=== PATIENT | female | born 1960 | race Caucasian/White ===

== ENCOUNTER 2016-04-18 08:26 | Observation (INO) | payer SELFPAY ==
[2016-04-18] VITALS (8 sets, daily range): BP systolic 114–146; BP diastolic 57–84; PULSE 45–82; RESP 15–20; TEMP 97.2–98; O2SAT 92–100
[~2016-04-18] VITALS: Ht 165.1 cm; Wt 61.3 kg
[~2016-04-18 08:26] MED LIST: ESTR.3 PO; FLUO40CA PO; MIRTA15 PO; PREG100 PO; PROZ20CA11 PO; ROPI4TAB PO
[2016-04-18 10:18] LABS: AUTOMATED NEUTROPHIL # 2.9 TH/MM3 (1.8-7.7); BASOPHIL % 0.1 % (0.0-2.0); EOSINOPHIL % 0.2 % (0.0-4.0); HEMATOCRIT 43.9 % (35.0-46.0); HEMO FLAGS DIFF FINAL; LYMPHOCYTE # 2.8 TH/MM3 (1.0-4.8); MEAN CELL VOLUME 91.6 FL (80.0-100.0); MEAN CORPUSCULAR HEMOGLOBIN 31.2 PG (27.0-34.0); MEAN CORPUSCULAR HGB CONC 34.1 % (32.0-36.0); MONO % 10.1 % (0.0-8.0); NEUT % 45.6 % (16.0-70.0); PLATELET COUNT 294 TH/MM3 (150-450); RED BLOOD COUNT 4.79 MIL/MM3 (4.00-5.30); RED CELL DISTRIBUTION WIDTH 13.4 % (11.6-17.2); WHITE BLOOD COUNT 6.3 TH/MM3 (4.0-11.0)
[2016-04-18 10:36] LABS: ALT (GPT) 21 U/L (10-53); ANION GAP 6 MEQ/L (5-15); AST (GOT) 17 U/L (15-37); BLOOD UREA NITROGEN 7 MG/DL (7-18); CHLORIDE 106 MEQ/L (98-107); GLOMERULAR FILTRATION RATE 60 ML/MIN (>89); POTASSIUM 3.6 MEQ/L (3.5-5.1); SODIUM (NA) 142 MEQ/L (136-145)
[2016-04-18 10:38] LABS: ALKALINE PHOSPHATASE 75 U/L (45-117); TOTAL BILIRUBIN ADULT 0.5 MG/DL (0.2-1.0)
[2016-04-18 10:43] LABS: BACTERIA, URINE MOD /hpf; BLOOD, URINE NEG (NEG); COMMENT (UR) CULTURE INDICATED; CULTURE IF INDICATED CULTURE INDICATED; GLUCOSE,URINE NEG (NEG); HYALINE CAST, URINE 2 /lpf (RARE); KETONE, URINE NEG (NEG); MUCUS URINE MOD /lpf (OCC); NITRITE,URINE NEG (NEG); PH, URINE 5.5 (5.0-8.5); SQUAMOUS EPITHELIAL CELL URINE 21 /hpf (0-5); URINE COLOR YELLOW (YELLW/STRAW)
--- NOTE | 2016-04-18 11:55 | PD ---
HPI Chief Complaint: Neuro Symptoms/ Deficits Time Seen by Provider: 11:43 Travel History International Travel<30 days: No Contact w/Intl Traveler<30days: No Traveled to known affect area: No History of Present Illness HPI 56-year-old female complaining of possible seizure. Patient states that she has recurrent symptoms of whole-body trembling and passing out and woke up on the floor for the past 6 months. Patient states that she probably had seizures. Patient denies any injury from these episodes. Patient states that she has recurrent headache. Patient denies any visual change. Patient denies any neck pain. Patient denies any chest pain or shortness of breath. Patient denies abdominal pain. Patient denies any focal weakness or numbness of extremity. Patient denies any illicit drug or alcohol abuse. Patient has history anxiety depression and chronic pain. Patient was on Lyrica, Effexor and Seroquel. Patient states that she ran out of the medications recently. Patient denies any medical problem. PFSH Past Medical History Bipolar Disorder: Yes Anxiety: Yes Depression: Yes Cancer: No Cardiovascular Problems: No High Cholesterol: Yes Diabetes: No Diminished Hearing: No Headaches: No Psychiatric: Yes (Pt states she was treated for depression beginning at age 14) Immunizations Current: Yes Seizures: No Tubal Ligation: Yes Past Surgical History Abdominal Surgery: Yes Appendectomy: Yes Tonsillectomy: Yes Social History Alcohol Use: Yes (vodka) Tobacco Use: Yes (2 PPD) Substance Use: Yes (MARIJUANA (ANXIETY), COCAINE (USES TO DECREASE DERESSION SX )) Allergies-Medications (Allergen,Severity, Reaction): Coded Allergies: No Known Allergies (Unverified , 11/21/14) Reported Meds & Prescriptions Reported Meds & Active Scripts Active Lyrica (Pregabalin) 100 Mg Cap 100 Mg PO Q12HR Mirtazapine 15 Mg Tab 15 Mg PO HS Prozac (Fluoxetine HCl) 20 Mg Cap 60 Mg PO DAILY Ropinirole HCl (Ropinirole Hydrochloride) 4 Mg Tab 1 Tab PO HS Fluoxetine (Fluoxetine HCl) 40 Mg Cap 40 Mg PO DAILY Reported Premarin (Estrogens Conjugated) 0.3 Mg Tab 0.3 Mg PO DAILY Review of Systems General / Constitutional: No: Fever Eyes: No: Visual changes HENT: Positive: Headaches Cardiovascular: No: Chest Pain or Discomfort Respiratory: No: Shortness of Breath Gastrointestinal: No: Abdominal Pain Genitourinary: No: Dysuria Musculoskeletal: No: Pain Skin: No Rash Neurologic: Positive: Seizures, No: Weakness Psychiatric: No: Depression Endocrine: No: Polydipsia Hematologic/Lymphatic: No: Easy Bruising Physical Exam Narrative GENERAL: Well-nourished, well-developed patient. SKIN: Warm and dry. HEAD: Normocephalic. EYES: No scleral icterus. No injection or drainage. NECK: Supple, trachea midline. No JVD or lymphadenopathy. CARDIOVASCULAR: Regular rate and rhythm without murmurs, gallops, or rubs. RESPIRATORY: Breath sounds equal bilaterally. No accessory muscle use. GASTROINTESTINAL: Abdomen soft, non-tender, nondistended. MUSCULOSKELETAL: No cyanosis, or edema. BACK: Nontender without obvious deformity. No CVA tenderness. Neurologic exam: Patient is awake and alert oriented 3. No obvious focal neurological deficit. Data Data Last Documented VS Vital Signs Date Time Temp Pulse Resp B/P Pulse Ox O2 Delivery O2 Flow Rate FiO2 04/18/16 11:50 52 16 146/75 97 Room Air 04/18/16 08:28 98.0 Orders Complete Blood Count With Diff (04/18/16 09:37) Comprehensive Metabolic Panel (04/18/16 09:37) Urinalysis - C+S If Indicated (04/18/16 09:37) Urine Culture (04/18/16 09:46) Ct Brain W/O Iv Contrast(Rout) (04/18/16 11:50) Drug Screen, Random Urine (04/18/16 11:50) Alcohol (Ethanol) (04/18/16 11:50) Labs Laboratory Tests Test 04/18/16 09:46 White Blood Count 6.3 TH/MM3 Red Blood Count 4.79 MIL/MM3 Hemoglobin 14.9 GM/DL Hematocrit 43.9 % Mean Corpuscular Volume 91.6 FL Mean Corpuscular Hemoglobin 31.2 PG Mean Corpuscular Hemoglobin 34.1 % Concent Red Cell Distribution Width 13.4 % Platelet Count 294 TH/MM3 Mean Platelet Volume 7.2 FL Neutrophils (%) (Auto) 45.6 % Lymphocytes (%) (Auto) 44.0 % Monocytes (%) (Auto) 10.1 % Eosinophils (%) (Auto) 0.2 % Basophils (%) (Auto) 0.1 % Neutrophils # (Auto) 2.9 TH/MM3 Lymphocytes # (Auto) 2.8 TH/MM3 Monocytes # (Auto) 0.6 TH/MM3 Eosinophils # (Auto) 0.0 TH/MM3 Basophils # (Auto) 0.0 TH/MM3 CBC Comment DIFF FINAL Differential Comment Urine Color YELLOW Urine Turbidity HAZY Urine pH 5.5 Urine Specific [place] 1.018 Urine Protein TRACE mg/dL Urine Glucose (UA) NEG mg/dL Urine Ketones NEG mg/dL Urine Occult Blood NEG Urine Nitrite NEG Urine Bilirubin NEG Urine Urobilinogen 2.0 MG/DL Urine Leukocyte Esterase MOD Urine RBC 1 /hpf Urine WBC 13 /hpf Urine Squamous Epithelial 21 /hpf Cells Urine Bacteria MOD /hpf Urine Hyaline Casts 2 /lpf Urine Mucus MOD /lpf Microscopic Urinalysis Comment CULTURE INDICATED Sodium Level 142 MEQ/L Potassium Level 3.6 MEQ/L Chloride Level 106 MEQ/L Carbon Dioxide Level 30.0 MEQ/L Anion Gap 6 MEQ/L Blood Urea Nitrogen 7 MG/DL Creatinine 0.97 MG/DL Estimat Glomerular Filtration 60 ML/MIN Rate Random Glucose 99 MG/DL Calcium Level 9.3 MG/DL Total Bilirubin 0.5 MG/DL Aspartate Amino Transf 17 U/L (AST/SGOT) Alanine Aminotransferase 21 U/L (ALT/SGPT) Alkaline Phosphatase 75 U/L Total Protein 7.3 GM/DL Albumin 4.2 GM/DL [facility] Medical Decision Making Medical Screen Exam Complete: Yes Emergency Medical Condition: Yes Interpretation(s) 12:35 PM. CBC within normal limit. CMP within normal limit. UA is positive with WBC and bacteria. 12:[address] scan of the brain negative acute pathology. Differential Diagnosis Differential diagnosis including seizures, electrolyte imbalance, psychiatric issues. Narrative Course 56-year-old female with possible recurrent seizures. Diagnosis Primary Impression: Seizure Additional Impression: UTI (urinary tract infection) Qualified Code: N30.00 - Acute cystitis without hematuria Leonel Stokes MD Apr 18, 2016 11:55
--- NOTE | 2016-04-18 12:52 | RADRPT ---
EXAM DATE/TIME: 04/18/2016 12:03 [facility] COMPARISON: No previous studies available for comparison. INDICATIONS : Possible seizures. RADIATION DOSE: 56.77 CTDIvol (mGy) MEDICAL HISTORY : None SURGICAL HISTORY : Tonsillectomy. Tubal ligation. ENCOUNTER: Initial ACUITY: 4 - 6 months PAIN SCALE: 0/10 LOCATION: cranial TECHNIQUE: Multiple contiguous axial images were obtained of the head. Using automated exposure control and adj ustment of the mA and/or kV according to patient size, radiation dose was kept as low as reasonably a chievable to obtain optimal diagnostic quality images. FINDINGS: CEREBRUM: The ventricles are normal for age. No evidence of midline shift, mass lesion, hemorrhage or acute in farction. No extra-axial fluid collections are seen. POSTERIOR FOSSA: The cerebellum and brainstem are intact. The 4th ventricle is midline. The cerebellopontine angle i s unremarkable. EXTRACRANIAL: The visualized portion of the orbits is intact. SKULL: The calvaria is intact. No evidence of skull fracture. CONCLUSION: No acute disease. Jose Carrasco Jr., MD on April 18, 2016 at 12:50 Board Certified Radiologist. This report was verified electronically.
[2016-04-18] MEDS ORDERED: SODIUM CHLORIDE 0.9% FLUSH 5 ML FLUSH IVF PRN (13:45)
[2016-04-18] MEDS ORDERED: LORazepam 2 MG/ML VIAL IV PRN (13:45)
[2016-04-18] MEDS ORDERED: EFFE150C PO ×2 (13:48→23:13)
[2016-04-18] MEDS ORDERED: ONDANSETRON HCL 4 MG/2 ML VIAL IV PRN (14:00)
[2016-04-18 14:15] LABS: AMPHETAMINE, URINE NEG (NEG); BARBITURATES, URINE NEG (NEG); COCAINE, URINE POS (NEG)
[2016-04-18] MEDS: SODIUM CHLOR 0.9% 1000 ML INJ 1,000 ML IV SCH (14:42)
--- NOTE | 2016-04-18 15:52 | MB ---
cc: ANDREW NAGY M.D. DATE OF CONSULTATION: 04/18/2016. REASON FOR CONSULTATION: Seizure versus syncope. HISTORY OF PRESENT ILLNESS: This is a 56-year-old woman who comes in with what she describes as hold body shaking, passing out and waking up on the floor. This has happened about a half a dozen times in the last six months. She feels dizzy before it happens. No one is ever there to see what actually occurs. She feels a little confused when she wakes up. At times, she is incontinent but does not bite her tongue because she does not have teeth, she states. She states she has had vertigo for about ten years off and on with positional changes. She denies any headache, chest pain, shortness of breath, numbness, weakness, or tingling. Interestingly enough, she denied any drug use or alcohol use to the emergency room physician. I asked her about smoking and she states she smokes but she denied alcohol. She has a history of anxiety, depression on Effexor. She states she takes Effexor. Apparently she told the ER doctor she is on Lyrica, Effexor and Seroquel and ran out recently so I am not sure really what the truth is in this situation. She has a history of bipolar disorder, anxiety, depression, hyperlipidemia, possibly. SOCIAL HISTORY: She states she drinks socially. She states she smokes. Denies drugs. ALLERGIES: None reported. HOME MEDICATIONS: Home medicines per chart. 1. Lyrica. 2. Mirtazapine. 3. Prozac. 4. Ropinirole. 5. Fluoxetine. 6. Premarin. EXAMINATION: VITAL SIGNS: Temperature is 98, heart rate 82, respiratory rate 16, blood pressure 131/63. NECK: The neck is supple. No bruits. HEART: Regular. NEUROLOGIC: She is awake, alert, oriented, fluent. Pupils reactive. Visual eid full. Face symmetric. Tongue midline. Motor - no drift. No leg lag. Cerebellar testing is normal. Toes are downgoing. Gait is withheld. LABS: Labs are reviewed. GFR is 60. CBC unremarkable. Urine culture is pending for 13 white cells and some bacteria and leukocyte esterase. Toxicology positive for cocaine and cannabinoids. IMPRESSION: 1. Syncope versus seizure. 2. Polysubstance abuse. 3. Smoker. RECOMMENDATIONS: 1. Recommend getting an EEG. 2. Get a carotid ultrasound. 3. Check orthostatics. 4. Put her back on her psychiatric medications. 5. Maintain telemetry. 6. If workup is negative, recommend discharge. 7. She needs to stop smoking and using drugs. 8. Antibiotics if indicated for a urinary tract infection. MD LIVAN Azul/ALY /3:06 PM /3:44 PM
--- NOTE | 2016-04-18 16:30 | MG ---
cc: FAVIOLA CLARK Lab No: [id number] Date: 04/18/16 Age: Sex: F Race: TECHNIQUE 17 channel EEG. DESCRIPTION Background rhythm is a symmetrical alpha rhythm, frequency is 8 Hz, amplitude 20-30 microvolts. There is some muscle artifact present. There is some eye movement artifact present as well. No lateralizing features are seen and no epileptiform discharges are present. Photic results in a normal driving response. Hyperventilation was done with a good effort with no change in the background rhythm. INTERPRETATION This is a normal EEG. MD CELSA Vasquez/AILYN /4:18 PM /4:28 PM
--- NOTE | 2016-04-18 16:42 | HHI.HP ---
[facility] No Primary Care Physician Admission Diagnosis seizure Diagnoses: Chief Complaint: Possible seizure Travel History International Travel<30 Days: No Contact w/Intl Traveler <30 Da: No Traveled to Known Affected Are: No History of Present Illness 56-year-old female with past medical history mood disorder who presented with possible seizure. The patient states that for the past 6 months she's been having episodes where she's having shaking and waking up on the floor. She feels like she's been having seizures. She recently moved back to the area from [place], and lost her insurance and does not have a PCP. She had previously been on Lyrica, Effexor, Seroquel, but now is currently only on Effexor. She states that recently she has been very anxious from her move back down here and living on her own. She states that she has not been eating or sleeping well. She states that she has a history of UTIs, denies any symptoms of dysuria like previous UTIs. She denies any fevers, chills, cough, recent illness. She does occasionally use cocaine, she states she is aware of the risks, no interest in quitting at this time. Review of Systems Except as stated in HPI: all other systems reviewed are Neg Past Family Social History Past Medical History Mood disorder including anxiety, depression, restless leg syndrome, insomnia Past Surgical History Appendectomy Reported Medications Effexor XR 24 HR (Venlafaxine HCl) 150 Mg Cap 300 Mg PO DAILY Allergies: Coded Allergies: No Known Allergies (Unverified , 11/21/14) Active Ordered Medications Current Medications Medications (Trade) Dose Ordered Sig/Lesli Route Start Time Stop Time Status Last Admin (NS 1000 ml Inj) 1,000 ml @ 75 mls/hr [id number] IV 04/18/16 14:00 04/18/16 14:42 (NS Flush) 2 ml UNSCH PRN IVF 04/18/16 13:45 (NS Flush) 2 ml BID IVF 04/18/16 21:00 (Ativan Inj) 2 mg UNSCH PRN IV 04/18/16 13:45 (Zofran Inj) 4 mg Q6H PRN IV 04/18/16 14:00 Family History Adopted, unknown family history Social History Smokes one pack per day Denies any alcohol use Does admit to cocaine use, last use yesterday Physical Exam Vital Signs Vital Signs Date Time Temp Pulse Resp B/P Pulse Ox O2 Delivery O2 Flow Rate FiO2 04/18/16 14:52 82 16 131/63 97 Room Air 04/18/16 11:50 52 16 146/75 97 Room Air 04/18/16 08:28 98.0 64 20 138/84 92 Room Air Physical Exam GENERAL: Well-developed well-nourished. In no acute distress. SKIN: Warm and dry. No lesions noted. HEENT: Normocephalic. Pupils equal and round. Mucous membranes pink and moist. CARDIOVASCULAR: Regular rate and rhythm. No murmur appreciated. RESPIRATORY: No accessory muscle use. Clear to auscultation. Breath sounds equal bilaterally. GASTROINTESTINAL: Abdomen soft, non-tender, nondistended. Bowel sounds x4. MUSCULOSKELETAL: No obvious deformities. No clubbing or cyanosis. No edema. NEUROLOGICAL: Awake and alert. No focal neurological deficits. Moves upper and lower extremities spontaneously. Normal speech. PSYCHIATRIC: Appropriate mood and affect; insight and judgment normal. Laboratory Laboratory Tests Test 04/18/16 09:46 White Blood Count 6.3 Red Blood Count 4.79 Hemoglobin 14.9 Hematocrit 43.9 Mean Corpuscular Volume 91.6 Mean Corpuscular Hemoglobin 31.2 Mean Corpuscular Hemoglobin 34.1 Concent Red Cell Distribution Width 13.4 Platelet Count 294 Mean Platelet Volume 7.2 Neutrophils (%) (Auto) 45.6 Lymphocytes (%) (Auto) 44.0 Monocytes (%) (Auto) 10.1 Eosinophils (%) (Auto) 0.2 Basophils (%) (Auto) 0.1 Neutrophils # (Auto) 2.9 Lymphocytes # (Auto) 2.8 Monocytes # (Auto) 0.6 Eosinophils # (Auto) 0.0 Basophils # (Auto) 0.0 CBC Comment DIFF FINAL Differential Comment Urine Color YELLOW Urine Turbidity HAZY Urine pH 5.5 Urine Specific [place] 1.018 Urine Protein TRACE Urine Glucose (UA) NEG Urine Ketones NEG Urine Occult Blood NEG Urine Nitrite NEG Urine Bilirubin NEG Urine Urobilinogen 2.0 Urine Leukocyte Esterase MOD Urine RBC 1 Urine WBC 13 Urine Squamous Epithelial 21 Cells Urine Bacteria MOD Urine Hyaline Casts 2 Urine Mucus MOD Microscopic Urinalysis Comment CULTURE INDICATED Sodium Level 142 Potassium Level 3.6 Chloride Level 106 Carbon Dioxide Level 30.0 Anion Gap 6 Blood Urea Nitrogen 7 Creatinine 0.97 Estimat Glomerular Filtration 60 Rate Random Glucose 99 Calcium Level 9.3 Total Bilirubin 0.5 Aspartate Amino Transf 17 (AST/SGOT) Alanine Aminotransferase 21 (ALT/SGPT) Alkaline Phosphatase 75 Total Protein 7.3 Albumin 4.2 Urine Opiates Screen NEG Urine Barbiturates Screen NEG Urine Amphetamines Screen NEG Urine Benzodiazepines Screen NEG Urine Cocaine Screen POS Urine Cannabinoids Screen POS Ethyl Alcohol Level LESS THAN 3 Date/Time Procedure Status Source Growth 04/18/16 09:46 Urine Culture Received Urine Clean Catch Pending Result Diagram: 04/18/16 0946 04/18/16 0946 Imaging Last Impressions Head CT 04/18/16 1150 Signed Impressions: Service Date/Time: April 12:03 - CONCLUSION: No acute disease. Jose Carrasco Jr., MD Assessment and Plan Assessment and Plan 56-year-old female with past medical history mood disorder who presented with possible seizure Possible syncope versus seizure: Symptoms possibly secondary to anxiety, cocaine use, decreased oral intake, being out of psychiatric medications. Head CT with no acute process. UDS positive for cocaine and cannabis. Checked EEG, normal. Neurology consulted, recommended carotid ultrasound, telemetry, orthostatics, and restarting psychiatric medications. Ativan as needed. Neuro checks and seizure precautions. Mood disorder: Continue home Effexor, will write prescription at discharge. Start low-dose Seroquel at night for sleep. Abnormal UA: Denies any urinary symptoms. Appears contaminated with multiple squamous epithelial cells. No antibiotics indicated at this time. Polysubstance abuse, cocaine, marijuana, and tobacco. Patient counseled. DVT prophylaxis: SCDs Disposition: Likely discharge tomorrow a.m. if patient remained stable overnight. Follow-up carotid ultrasound. We will have case management see the patient and try to provide outpatient resources for follow-up. Written by Aric Braswell, acting as scribe for Dr. Harding on 04/18/16 at 16:42. The documentation accurately reflects the work performed [id number] by me on at 16:42. Discussed Condition With Patient Dr. Harding spoke to Aric Batista Apr 18, 2016 4:42 pm Pelon Harding DO Apr 18, 2016 5:56 pm
--- NOTE | 2016-04-18 18:08 | RADRPT ---
EXAM DATE/TIME: 04/18/2016 17:01 [facility] COMPARISON: No previous studies available for comparison. INDICATIONS : Cerebrovascular accident. MEDICAL HISTORY : Hypercholesterolemia. Hearing loss. Anticoagulant therapy, Aspirin. Herniated disc. SURGICAL HISTORY : None. ENCOUNTER: Initial ACUITY: 1 day PAIN SCORE: 0/10 LOCATION: Bilateral neck PEAK SYSTOLIC VELOCITIES (cm/sec): ICA/CCA RATIO: Right: 1.1 Left: 0.7 ICA: Right: 92 Left: 88 CCA: Right: 86 Left: 125 ECA: Right: 67 Left: 107 VERTEBRAL: Right: 45 antegrade Left: 57 antegrade Elevated flow velocities and ICA/CCA ratios have been found to correlate with increased degrees of vessel stenosis, calculated as percentage of diameter relative to a normal segment of distal ICA/CCA FINDINGS: RIGHT CAROTID: Minimal plaque is seen at the carotid bulb region. No significant stenosis is visualized. The wavefo nicholas are within normal limits. LEFT CAROTID: No significant stenosis is visualized. The waveforms are within normal limits. VERTEBRAL ARTERIES: Antegrade flow is seen in both vertebral arteries. MISCELLANEOUS: None. CONCLUSION: Minimal plaque at the right carotid bulb region. A significant stenosis is not seen. Miguel A Jolly MD on April 18, 2016 at 18:05 Board Certified Radiologist. This report was verified electronically.
[2016-04-18] MEDS: SODIUM CHLORIDE 0.9% FLUSH 5 ML FLUSH IVF SCH (20:51)
[2016-04-18] MEDS ORDERED: QUEtiapine FUMARATE 25 MG TAB PO SCH (21:00)
[2016-04-18] MEDS ORDERED: QUET1TAB7 PO (23:13)
[2016-04-19] VITALS: BP 113/56; PULSE 53; PULSE 54; RESP 18; TEMP 96.3; O2SAT 95
[2016-04-19 03:17] VITALS: PULSE 38
[2016-04-19] MEDS: SODIUM CHLOR 0.9% 1000 ML INJ 1,000 ML IV SCH (03:20)
[2016-04-19 04:00] VITALS: BP 132/70; PULSE 43; RESP 18; TEMP 97.4; O2SAT 98
[2016-04-19 08:00] VITALS: BP 109/70; PULSE 51; RESP 20; TEMP 97.7; O2SAT 97
--- NOTE | 2016-04-19 08:03 | HHI.PR ---
Subjective Remarks Ms. Shields is doing well. No seizure activity. EEG and Carotid US were unremarkable. Objective Vitals Vital Signs Date Time Temp Pulse Resp B/P Pulse Ox O2 Delivery O2 Flow Rate FiO2 04/19/16 04:00 97.4 43 18 132/70 98 04/19/16 03:17 38 04/19/16 00:00 96.3 53 18 113/56 95 04/19/16 00:00 54 04/18/16 21:30 97.2 45 18 115/58 95 04/18/16 20:28 50 18 114/57 100 04/18/16 19:30 98 Room Air 04/18/16 19:30 53 18 119/66 98 04/18/16 19:06 52 16 119/66 97 Room Air 04/18/16 17:33 58 15 136/68 51 16 129/62 70 16 128/80 04/18/16 14:52 82 16 131/63 97 Room Air 04/18/16 11:50 52 16 146/75 97 Room Air 04/18/16 08:28 98.0 64 20 138/84 92 Room Air I/O 04/18/16 04/18/16 04/18/16 04/19/16 04/19/16 04/19/16 07:00 15:00 23:00 07:00 15:00 23:00 Intake Total 240 ml 360 ml Balance 240 ml 360 ml Intake Oral 240 ml 360 ml # Voids 5 Result Diagram: 04/18/16 0946 04/18/16 0946 Imaging Last Impressions Carotid Artery Ultrasound 04/18/16 1615 Signed Impressions: Service Date/Time: April 17:01 - CONCLUSION: Minimal plaque at the right carotid bulb region. A significant stenosis is not seen. Miguel A Jolly MD Head CT 04/18/16 1150 Signed Impressions: Service Date/Time: April 12:03 - CONCLUSION: No acute disease. Jose Carrasco Jr., MD Objective Remarks GENERAL: Alert, Oriented x 3, NAD. SKIN: Warm and dry. HEAD: Normocephalic. EYES: No scleral icterus. No injection or drainage. NECK: Supple, trachea midline. No JVD or lymphadenopathy. CARDIOVASCULAR: Regular rate and rhythm without murmurs, gallops, or rubs. RESPIRATORY: Breath sounds equal bilaterally. No accessory muscle use. GASTROINTESTINAL: Abdomen soft, non-tender, nondistended. MUSCULOSKELETAL: No cyanosis, or edema. BACK: Nontender without obvious deformity. No CVA tenderness. Procedures EEG - normal study. A/P Problem List: (1) Anxiety and depression ICD Code: F41.8 Status: Acute (2) Tobacco abuse ICD Code: Z72.0 Status: Acute Assessment and Plan 56-year-old female with past medical history mood disorder who presented with possible seizure Possible syncope versus seizure: Symptoms possibly secondary to anxiety, cocaine use, decreased oral intake, being out of psychiatric medications. Head CT with no acute process. UDS positive for cocaine and cannabis. Checked EEG, normal. Neurology recommended carotid US and if normal, patient can be discharged. Carotid US was unremarkable. - Patient is being discharged on 04/19/2017. Mood disorder: Continue home Effexor, will write prescription at discharge. Continue low-dose Seroquel Abnormal UA: Denies any urinary symptoms. Appears contaminated with multiple squamous epithelial cells. No antibiotics indicated at this time. Polysubstance abuse, cocaine, marijuana, and tobacco. Patient counseled. DVT prophylaxis: SCDs Discharge patient to home Condition on discharge: Improved Regular Diet as tolerated Ad Anne activity Rx written: Seroquel 25 mg daily at bedtime Effexor XR 300 mg by mouth daily - prescription renewed. Follow-up with primary care physician within one week. Pelon Harding DO Apr 19, 2016 8:02 am
[2016-04-19] MEDS: SODIUM CHLORIDE 0.9% FLUSH 5 ML FLUSH IVF SCH (08:24)
[2016-04-19 08:32] LABS: AUTOMATED NEUTROPHIL # 2.6 TH/MM3 (1.8-7.7); BASOPHIL % 0.1 % (0.0-2.0); EOSINOPHIL % 0.1 % (0.0-4.0); HEMATOCRIT 41.8 % (35.0-46.0); HEMO FLAGS DIFF FINAL; LYMPH % 46.3 % (9.0-44.0); LYMPHOCYTE # 2.7 TH/MM3 (1.0-4.8); MEAN CELL VOLUME 90.9 FL (80.0-100.0); MEAN CORPUSCULAR HEMOGLOBIN 31.6 PG (27.0-34.0); MEAN CORPUSCULAR HGB CONC 34.8 % (32.0-36.0); MONO % 9.3 % (0.0-8.0); NEUT % 44.2 % (16.0-70.0); PLATELET COUNT 313 TH/MM3 (150-450); RED CELL DISTRIBUTION WIDTH 13.5 % (11.6-17.2); WHITE BLOOD COUNT 5.8 TH/MM3 (4.0-11.0)
[2016-04-19 08:51] LABS: POTASSIUM 3.5 MEQ/L (3.5-5.1)
[2016-04-19] MEDS ORDERED: VENLAFAXINE HCL XR 75 MG CAP PO SCH (09:00)
== END 2016-04-19 10:11 | disposition home or self-care (01) ==
LOC: NEPD 08:26 → INTOOBSV 13:45 → NEDA 13:45 → NEDH 19:23 → N05B 21:30
PROVIDERS: ADMIT Hospitalist; ATTEND Hospitalist
DX: R56.9 Unspecified convulsions (principal); N39.0 Urinary tract infection, site not specified; F41.9 Anxiety disorder, unspecified; F31.9 Bipolar disorder, unspecified; E78.00 Pure hypercholesterolemia, unspecified; F17.210 Nicotine dependence, cigarettes, uncomplicated
CPT/HCPCS: 70450; 80048; 80053; 80307; 80320; 81001; 85025; 87086; 93880; 95819; 99285; G0378; J7030